=== PATIENT | female | born 1970 | race Caucasian/White ===

== ENCOUNTER 2016-09-26 08:55 | Day surgery (SDC) | payer BC ==
[~2016-09-26 08:55] MED LIST: DIPHENHYDRAMINE HCL 50 MG/ML VIAL ONE; EPINEPHRINE INJ 1 MG/10 ML DISP.SYRIN ONE; FLUMAZENIL INJ 0.5 MG/5 ML VIAL IV ONE; GLUCAGON,HUMAN RECOMB 1 MG INJ ONE; MIDAZOLAM 2 MG/2 ML INJ ONE; NALOXONE HCL INJ/PF 0.4 MG/1 ML SDV ONE; ONDANSETRON HCL INJ/PF 4 MG/2 ML SDV ONE; PROMETHAZINE HCL INJ 25 MG/1 ML VIAL ONE
[2016-09-26] MEDS: FENTANYL CITRATE INJ/PF 100 MCG/2 ML AMPUL ONE ×2 (09:28→09:36)
--- NOTE | 2016-09-26 09:43 | Operative Report ---
Operative Report DATE OF SURGERY: 09/26/16 Operative Report: The risks benefits and alternatives of the procedure explained to the patient in detail and informed consent is obtained that GIF Olympus video scope was inserted into the patient's mouth and hypopharynx the esophagus is identified intubated and insufflated the scope was then advanced through the esophagus stomach and duodenum retroflexion maneuver is done the esophagus stomach and first and second portions of the duodenum examined PREOPERATIVE DIAGNOSIS: History of peptic ulcer disease, epigastric pain POSTOPERATIVE DIAGNOSIS: Gastric ulcer at the gastric outlet status post biopsy. Nodular duodenitis. Biopsies obtained rule out Helicobacter pylori OPERATION: EGD with biopsy SURGEON: CATHY CALLE ANESTHESIA: Moderate Sedation - 2 mg of Versed, 100 g of fentanyl. Conscious sedation monitoring time 15 minutes. TISSUE REMOVED OR ALTERED: Gastric mucosal specimens obtained COMPLICATIONS: None. ESTIMATED BLOOD LOSS: none. INTRAOPERATIVE FINDINGS: Normal esophagus. Stomach as described. Nodular duodenitis PROCEDURE: Patient tolerated procedure well. No immediate postprocedure complications are noted. Patient is discharged in good condition. Discharge date 09/26/2016. Discharge diet: Regular. Discharge activity: Regular. Follow-up EGD in 6 weeks to document healing. We'll await biopsies. 2-3 week follow-up to discuss findings Patient is instructed to call the office or proceed to the emergency room after any further problems or questions
[2016-09-26 10:45] VITALS: BP 90/52
== END 2016-09-26 10:50 | disposition home or self-care (01) ==
LOC: END 08:55
PROVIDERS: ATTEND Internal Medicine Gastroenterology
PROC: 0DB68ZX Excision of Stomach, Via Natural or Artificial Opening Endoscopic, Diagnostic (ICD-10-PCS; principal; 2016-09-26 09:00)
DX: K25.9 Gastric ulcer, unspecified as acute or chronic, without hemorrhage or perforation (principal); K29.80 Duodenitis without bleeding; F32.9 Major depressive disorder, single episode, unspecified; F41.9 Anxiety disorder, unspecified; Z79.899 Other long term (current) drug therapy; Z79.51 Long term (current) use of inhaled steroids; Z88.8 Allergy status to other drugs, medicaments and biological substances; Z88.6 Allergy status to analgesic agent
CPT/HCPCS: 43239; 88305 ×2; J2250; J3010; J0171; J1200; J1610; J2310; J2405; J2550; J3490

== ENCOUNTER → 2016-11-19 | Outpatient (CLI) | payer BC | LOC: OD 13:51 | PROVIDERS: ATTEND Nurse Practitioner | DX: M79.671 Pain in right foot (principal) ==

== ENCOUNTER 2017-02-07 11:36 | Day surgery (SDC) | payer BC ==
[~2017-02-07 11:36] MED LIST changes: -PROMETHAZINE HCL INJ 25 MG/1 ML VIAL ONE
[2017-02-07] MEDS: MIDAZOLAM 2 MG/2 ML INJ ONE ×2 (12:23→12:27)
[2017-02-07] MEDS: FENTANYL CITRATE INJ/PF 100 MCG/2 ML AMPUL ONE ×3 (12:25→12:32)
--- NOTE | 2017-02-07 13:32 | Operative Report ---
Operative Report DATE OF SURGERY: 02/07/17 Operative Report: The risks benefits and alternatives of the procedure explained to the patient in detail and informed consent is obtained.A GIF Olympus video scope was inserted into the patient's mouth and hypopharynx, the esophagus is identified intubated and insufflated, the scope was then advanced through the esophagus stomach and duodenum, retroflexion maneuver is done, the esophagus stomach and first and second portions of the duodenum examined PREOPERATIVE DIAGNOSIS: Abdominal pain previous history of peptic ulcer disease POSTOPERATIVE DIAGNOSIS: Better overall anatomic definition indicating healing of the ulcer but the erosions are still present at the gastric outlet. No active bleeding is noted. Biopsies are obtained. The esophagus is normal, first and second portions of the duodenum normal OPERATION: EGD with biopsy SURGEON: CATHY CALLE ANESTHESIA: Moderate Sedation - 4 mg of Versed, 125 mcg of fentanyl. Conscious sedation monitoring time 30 minutes. TISSUE REMOVED OR ALTERED: Gastric specimen obtained. COMPLICATIONS: None. ESTIMATED BLOOD LOSS: None. INTRAOPERATIVE FINDINGS: As described above. PROCEDURE: Patient tolerated procedure well. No immediate postprocedure complications are noted. Patient discharged in good condition. Discharge date 02/07/2017. Discharge diet: Regular. Discharge activity: Regular. 2-3 week follow-up to discuss findings. Patient is instructed to call the office or proceed to the emergency room with any further problems or questions. We will wait on pathology.
[2017-02-07 13:45] VITALS: BP 89/49
== END 2017-02-07 13:45 | disposition home or self-care (01) ==
LOC: END 11:36
PROVIDERS: ATTEND Internal Medicine Gastroenterology
PROC: 0DB68ZX Excision of Stomach, Via Natural or Artificial Opening Endoscopic, Diagnostic (ICD-10-PCS; principal; 2017-02-07 12:00)
DX: K25.9 Gastric ulcer, unspecified as acute or chronic, without hemorrhage or perforation (principal); K31.9 Disease of stomach and duodenum, unspecified
CPT/HCPCS: 43239; 88305 ×2; J2250; J3010; J0171; J1200; J1610; J2310; J2405; J3490